=== PATIENT | female | born 1970 | race Caucasian/White ===

== ENCOUNTER → 2021-12-17 00:26 | Outpatient (CLI) | payer OTHER, SELFPAY ==
--- NOTE | 2021-12-17 | DI.MAMMO_ITS ---
Exam(s) MAMMO SCREENING EXAM: MAMMO SCREENING CLINICAL HISTORY: SCREENING FOR BREAST CANCER Z12.39 TECHNIQUE: Bilateral full field digital CC and MLO mammographic images were obtained with 3D tomosyn thesis and utilizing computer aided detection (CAD). COMPARISON: Available for comparison. FINDINGS: Masses/Architectural Distortion: None seen. Microcalcifications: No suspicious pleomorphic-type are seen. Skin Thickening/Nipple Retraction: None. IMPRESSION: 1. No significant interval change with no specific features of malignancy noted. 2. Unless there is more urgent need, screening mammography is recommended, as per [employer] guidelines. BI-RADS Category 1 - Negative Breast Density - Category B - Scattered areas of fibroglandular density Breast density category C or D implies that the patient has dense breast tissue. Dense breast tissue is very common and is not abnormal but dense breast tissue can make it harder to find cancer on a ma mmogram. Also, dense breast tissue may increase their breast cancer risk. This information about the result of the mammogram report was provided to the patient to raise their awareness. Use this report when you speak with the patient about their risks for breast cancer, which includes their family hist ory. At that time, you may recommend for more screening tests (Ultrasound or MRI) as they might be us eful based on their risk. A negative radiographic report should not delay biopsy if a dominant or clinically suspicious mass is present. Up to ten percent of cancers are not identified on mammography. A negative report may reinforce clinical impression. Adenosis and dense breasts may obscure an underlying neoplasm. False positive reports average 6 to 10%. Patient will receive a letter notifying them of these results.
== END ==
PROVIDERS: Visit Provider Nurse Practitioner Family
DX: Z12.31 Encounter for screening mammogram for malignant neoplasm of breast (principal); R92.8 Other abnormal and inconclusive findings on diagnostic imaging of breast
CPT/HCPCS: 77063; 77067

== ENCOUNTER 2021-12-23 09:39 | Outpatient (REF) | payer OTHER, SELFPAY ==
--- NOTE | 2021-12-23 08:30 | PAPFT_PTH ---
PATIENT: Daisha Sears LOC: [facility]#:[id number] AGE/SX: 51/F ROOM: RE12/23/[address]: Gabriela Tabares : 1970 BED: DIS: 12/23/2021 SPEC #: [id number] RECD: 12/23/21 14:54 STATUS: MELLO RELana #: [id number] EMILY: 12/23/21 08:[address]: Gabriela Tabares DEPT: [facility] Cytology RECD BY: Gwen Cazares Tissues: 1 - CX/ENDOCX FOR PAP SMEARS Procedures: PAP THIN PREP/UVM Screening HPV DNA PROBE Comments: [id number]
[2021-12-23 15:15] LABS: HCT 42.1 % (36.0-46.0); HGB 13.5 g/dL (11.2-15.7); MCH 29.2 pg (27.0-33.0); MCHC 32.1 % (32.0-36.0); MCV 91 fL (80-95); MPV 11.1 fL (8.0-11.0); Platelet Count 220 10^3/uL (130-400); RBC 4.62 10^6/uL (3.93-5.22); RDW 13.1 % (11.7-14.6); RDW-SD 43.8 fL; WBC 4.33 10^3/uL (4.4-10.8)
[2021-12-23 15:52] LABS: ALT 16 U/L (14-59); AST 19 U/L (15-37); Albumin 3.8 g/dL (3.4-5.0); Alkaline Phosphatase 120 U/L (46-116); BUN 10 mg/dL (7-18); Bilirubin, Total 0.4 mg/dL (0.2-1.0); CREATININE 0.7 mg/dL (0.55-1.02); Calculated LDL 122 mg/dL (<100); Chloride 105 mmol/L (98-107); Cholesterol 208 mg/dL (<200); Glucose 100 mg/dL (74-106); HDL Cholesterol 64 mg/dL (40-60); Potassium 4.2 mmol/L (3.5-5.1); Sodium 141 mmol/L (136-145); Total Protein 7.5 g/dL (6.4-8.2); Triglyceride 113 mg/dL (<150)
[2021-12-23 16:11] LABS: Vitamin D 25 Total 25.9 ng/mL (30-100)
[2021-12-24 09:41] LABS: Hepatitis C Ab w Rflx HCV PCR Negative (Negative)
[2021-12-24 10:31] LABS: HIV-1/2 Ag & Ab Screen Negative (Negative)
[2021-12-24 15:22] LABS: Chlamydia Result Negative (Negative); GC Result Negative (Negative)
== END 2021-12-23 09:40 | disposition home or self-care (01) ==
LOC: NCHCN 09:39
PROVIDERS: Visit Provider Nurse Practitioner Family
DX: E55.9 Vitamin D deficiency, unspecified; Z11.59 Encounter for screening for other viral diseases; Z11.4 Encounter for screening for human immunodeficiency virus [HIV]
CPT/HCPCS: 80053; 80061; 82306; 85027; 86803; 87389; 87491; 87591; 88142; 87624

== ENCOUNTER 2022-06-16 08:50 | Day surgery (SDC) | payer OTHER, SELFPAY ==
--- NOTE | 2022-06-15 20:33 | W.PM.DSUDISC ---
Date of service: 06/16/22 Time of Service: 11:14 Discharge Plan Disposition Patient Disposition: Home Condition: Good Discharge Details Reason For Visit: Screening colonoscopy Attending Provider: Melchor Burton Primary Care Provider: Gabriela Tabares Home Meds and New Rx's Prescriptions: Continued hydroxyzine pamoate 25 mg capsule 1 cap PO PRN PRN Label Comments: TAKE 1 CAPSULE BY MOUTH ONCE A DAY NEEDED. TAKE 1 TO 2 CAPSULES AT NIGHT NEEDED Discontinued polyethylene glycol 3350 17 gram/dose powder 238 g PO ONCE Qty: 238 0RF Rx Instructions: take per colonoscopy instructions bisacodyl [Dulcolax (bisacodyl)] 5 mg tablet,delayed release (DR/EC) 5 mg PO ONCE Qty: 4 0RF Rx Instructions: take per colonoscopy instructions Discharge Instructions Instructions: Colorectal Polyps (GEN) Additional Instructions: 1. If tolerated, consume a soft, low fiber diet for 1-2 days. 2[address] Do not drive, drink alcohol, operate machinery, make critical decisions, or do activities that require coordination or balance for 24 hours. 3. Because air was put into your colon during the procedure, expelling air from your rectum (passing gas or farting) is normal. 4. You may not have a bowel movement for 1-3 days because of the colonoscopy prep. This is normal. 5. Go directly to the emergency room if you notice any of the following: Develop chills (warm to touch), or if you have a thermometer and your temperature is above 101 Difficulty breathing or difficultly swallowing Persistent vomiting Severe abdominal pain, other than gas cramps Severe chest pain Black, tarry stools Any bleeding ? exceeding one tablespoon 6. Call your physician if the site where your intravenous was started becomes red, swollen, painful, and warm to touch. 7. Your physician has reviewed your pre-procedure medications. Please continue to take those medications as previously ordered. You will be given specific information/education regarding any changes to your medications before leaving. Activity:: Activity as Tolerated Diet:: As Tolerated Discharge Orders Discharge Orders: Discharge Order (Routine); Ordered 06/15/22 Ordered By: Melchor Burton DS: Diagnosis Discharge Diagnosis (1) Screening for colon cancer: Status: Acute Asessment and Plan: Daisha, we were able to complete your colonoscopy today. It went very well. You had 1 polyp, that I removed completely. Will take about a week or so to get the results of the pathology, but I will call you at that time, and let you know if you need to do anything else, or when your next colonoscopy should be.
--- NOTE | 2022-06-15 20:34 | W.COLOREPORT ---
Date of service: 06/16/22 Time of Service: 11:16 Colonoscopy Report Date of procedure: 06/16/22 Pre-op diagnosis general: Screening colonoscopy Post-op diagnosis procedure note: other (Colon polyp, diverticulosis) Procedure: Colonoscopy with polypectomy Surgeon: Melchor Burton Anesthesia Type: General:No Airway Estimated blood loss (mL): 10 Pathology: other (Colon polyp around 25 cm) Complications: None Disposition: same day Indications: Daisha is here for her first screening colonoscopy Prep: Miralax/Dulcolax Procedure Start Time: 10:31 Procedure End Time: 10:53 Retraction Time: 17 Findings: Mild sigmoid diverticulosis, colon polyp around 25 cm Procedure Description: After the induction of monitored anesthetic care, and with the patient in left lateral decubitus position, I began by performing an external anorectal exam.? Perineum and skin were normal, as was the anal verge.? There was no evidence of external hemorrhoids.? Next, I performed a digital rectal exam.? I did not appreciate any abnormal findings.? Next, I advanced a colonoscope into the rectal vault.? I performed retroflexion.? This was normal.? Using insufflation, I then advanced the colonoscope beyond the rectal folds and into the sigmoid colon before advancing towards the cecum.? There were occasional sigmoid diverticuli. The quality of the prep was excellent.? The scope was noted to be in the cecum by identification of the ileocecal valve and appendiceal orifice.? I then began withdrawing the colonoscope using repeated irrigation as necessary for full evaluation of the colonic mucosa. Around 25 cm from the anal verge I identified a 0.5 cm polyp. ?It appeared sessile in character. ?I was able to remove this with a cold snare polypectomy. ?I examined the site, and there was minimal bleeding. ?Once this was completed, I continued to withdraw the scope and examine the remainder of the colonic mucosa.?Once the scope was withdrawn to the level of the rectum, great care was taken to examine portions of the rectal folds.? Finally, the scope was withdrawn and the patient was brought to the same-day surgery recovery unit as the anesthetic wore off. ?The findings and instructions were shared with the patient prior to discharge.
[2022-06-16 09:27] VITALS: BP 117/71; PULSE 78; RESP 16; TEMP 36.5; O2SAT 96
--- NOTE | 2022-06-16 09:47 | W.ANESPRE ---
General Info Date of Service Date Performed: 06/16/22 Height: 5 ft 2 in Weight: 81.9 kg Body Mass Index (BMI): 33.0 Surgical Procedure: Operation Date: 06/16/22 10:35 Proposed Procedure Side Surgeon giselle Burton MD Meds Allergies and Home Medications Allergies Allergy/AdvReac Type Severity Reaction Status Date / Time No Known Allergies Allergy Verified 06/16/22 09:26 Home Medication Medication Instructions Recorded hydroxyzine pamoate 25 mg capsule 1 cap PO PRN PRN 06/16/22 Current Visit Medications: Current Medications Generic Name Dose Route Start Last Admin Trade Name Freq PRN Reason Stop Dose Admin Hyoscyamine Sulfate 0.125 mg 06/15/22 20:35 Hyoscyamine 0.125 Mg Sl/Oral/Chew SL DIRECTED PRN Ringer's Solution 1,000 mls @ 80 mls/hr 06/16/22 06:00 IV 07/15/22 23:59 INFUSION EDENILSON IV Miscellaneous Supplies 1 each 06/16/22 06:00 Iv Access IV 07/15/22 23:59 DIRECTED EDENILSON Ondansetron HCl 4 mg 06/15/22 20:35 Ondansetron 4 Mg/2 Ml Vial IVP Q4H PRN PRN Nausea / Vomiting Sodium Chloride 0 ml 06/16/22 06:00 Normal Saline Flush 10 Ml Syr IV 07/15/22 23:59 PRN PRN Sodium Chloride 0 ml 06/16/22 06:00 Normal Saline 10 Ml Vial IJ 07/15/22 23:59 DIRECTED PRN Sterile Water 0 ml 06/16/22 06:00 Water,Injection,Sterile 10 Ml Vial IJ 07/15/22 23:59 DIRECTED PRN PFSH Active Problems Active Problems: Problem Status Onset Code Screening for colon cancer Z12.11 Left foot pain M79.672 Pilar cyst L72.11 Enlarged uterus N85.2 Breast mass N63.0 Vitamin D deficiency E55.9 Irregular menses N92.6 Fibroid uterus D25.9 Medical History Medical History History of Lyme disease Incomplete Surgical History Surgical History Hx of dilation and curettage Tobacco Smoking/Tobacco Use Status: Never Alcohol Alcohol Intake: current Alcohol intake frequency: a few times a month Substance Use Substance use: Never Substance use type: does not use Vital Signs and Lab Results Vital Signs Most Recent Vital Signs in EMR: Most Recent Vital Signs Temp Pulse Resp BP Pulse Ox 36.5 C 78 16 117/71 96 06/16/22 09:27 06/16/22 09:27 06/16/22 09:27 06/16/22 09:27 06/16/22 09:27 Point of Care Results Point of Care Results: POC- Test(urine) Negative 06/16/22 09:43 Lab Results Blood Type / Crossmatch: No Data to Display Complete Blood Count: No Data to Display Complete Metabolic Panel: No Data to Display Liver Function Panel: No Data to Display Coagulation Panel: No Data to Display Cardiac Panel: No Data to Display Arterial Blood Gas: No Data to Display Venous Blood Gas: No Data to Display Pancreas Panel: No Data to Display Thyroid Panel: No Data to Display Infectious Disease: No Data to Display Blood Cultures: No Data to Display Toxicology Panel: No Data to Display Panel: No Data to Display Anesthesia Assessment and Plan Anesthesia History Personal History: No History of Anesthesia Complications Family History: No Family History of Anesthesia Complications Exercise Tolerance Exercise Tolerance: Metabolic Equivalents>4 Pertinent Negatives Pertinent Negatives: No Symptoms of GERD Cardiac & Pulmonary Exam Cardiac Exam: Normal S1/S2 Heart Sounds Pulmonary Exam: Clear Bilateral Breath Sounds Implantable Cardiac Device Does patient have a Pacemaker or an ICD?: No Airway Exam Known Difficult Airway: No Mallampati Class: 2 Mouth Opening: Normal (> 3cm) Thyromental Distance: Greater than 3 cm Neck Range of Motion: Full ROM Neck Circumference: Normal Teeth Condition: Normal Dentition ASA Classification ASA Score: ASA 2 Emergency Case?: No NPO Status NPO Status: NPO Clears >2 hours, Solids >8 hours Status Status: Negative HCG Anesthesia Plan Resuscitation Status: Full Code Anesthesia Technique: General Anesthesia Airway Planned: Natural Airway Monitors Used: Standard Monitors
[2022-06-16] MEDS: Lactated Ringers 1,000 ML 80 ML IV (09:50)
--- NOTE | 2022-06-16 10:14 | W.ANESPRE ---
General Info Height: 5 ft 2 in Weight: 81.9 kg Body Mass Index (BMI): 33.0 Surgical Procedure: Operation Date: 06/16/22 10:35 Proposed Procedure Side Surgeon giselle Burton MD Meds Allergies and Home Medications Allergies Allergy/AdvReac Type Severity Reaction Status Date / Time No Known Allergies Allergy Verified 06/16/22 09:26 Home Medication Medication Instructions Recorded hydroxyzine pamoate 25 mg capsule 1 cap PO PRN PRN 06/16/22 Current Visit Medications: Current Medications Generic Name Dose Route Start Last Admin Trade Name Freq PRN Reason Stop Dose Admin Hyoscyamine Sulfate 0.125 mg 06/15/22 20:35 Hyoscyamine 0.125 Mg Sl/Oral/Chew SL DIRECTED PRN Ringer's Solution 1,000 mls @ 80 mls/hr 06/16/22 06:00 06/16/22 09:50 IV 07/15/22 23:59 80 mls/hr INFUSION EDENILSON Administration IV Miscellaneous Supplies 1 each 06/16/22 06:00 Iv Access IV 07/15/22 23:59 DIRECTED EDENILSON Ondansetron HCl 4 mg 06/15/22 20:35 Ondansetron 4 Mg/2 Ml Vial IVP Q4H PRN PRN Nausea / Vomiting Sodium Chloride 0 ml 06/16/22 06:00 Normal Saline Flush 10 Ml Syr IV 07/15/22 23:59 PRN PRN Sodium Chloride 0 ml 06/16/22 06:00 Normal Saline 10 Ml Vial IJ 07/15/22 23:59 DIRECTED PRN Sterile Water 0 ml 06/16/22 06:00 Water,Injection,Sterile 10 Ml Vial IJ 07/15/22 23:59 DIRECTED PRN PFSH Active Problems Active Problems: Problem Status Onset Code Screening for colon cancer Z12.11 Left foot pain M79.672 Pilar cyst L72.11 Enlarged uterus N85.2 Breast mass N63.0 Vitamin D deficiency E55.9 Irregular menses N92.6 Fibroid uterus D25.9 Medical History Medical History History of Lyme disease Incomplete Surgical History Surgical History Hx of dilation and curettage Tobacco Smoking/Tobacco Use Status: Never Alcohol Alcohol Intake: current Alcohol intake frequency: a few times a month Substance Use Substance use: Never Substance use type: does not use Vital Signs and Lab Results Vital Signs Most Recent Vital Signs in EMR: Most Recent Vital Signs Temp Pulse Resp BP Pulse Ox 36.5 C 78 16 117/71 96 06/16/22 09:27 06/16/22 09:27 06/16/22 09:27 06/16/22 09:27 06/16/22 09:27 Point of Care Results Point of Care Results: POC- Test(urine) Negative 06/16/22 09:43 Lab Results Blood Type / Crossmatch: No Data to Display Complete Blood Count: No Data to Display Complete Metabolic Panel: No Data to Display Liver Function Panel: No Data to Display Coagulation Panel: No Data to Display Cardiac Panel: No Data to Display Arterial Blood Gas: No Data to Display Venous Blood Gas: No Data to Display Pancreas Panel: No Data to Display Thyroid Panel: No Data to Display Infectious Disease: No Data to Display Blood Cultures: No Data to Display Toxicology Panel: No Data to Display Panel: No Data to Display Anesthesia Assessment and Plan Anesthesia History Personal History: No History of Anesthesia Complications Family History: No Family History of Anesthesia Complications Exercise Tolerance Exercise Tolerance: Metabolic Equivalents>4 Implantable Cardiac Device Does patient have a Pacemaker or an ICD?: No Airway Exam Known Difficult Airway: No Mouth Opening: Normal (> 3cm) Thyromental Distance: Greater than 3 cm Neck Range of Motion: Full ROM Neck Circumference: Normal
[2022-06-16 10:19] VITALS: BMI 33.0
--- NOTE | 2022-06-16 10:34 | BOWEL_PTH ---
PATIENT: Daisha Sears LOC: [facility] U#:[id number] AGE/SX: 52/F ROOM: RE06/16/[address]: Melchor Burton MD : 1970 BED: DIS: 06/16/2022 SPEC #: [id number] RECD: 06/16/22 11:47 STATUS: MELLO REQ #: [id number] EMILY: 06/16/22 10:[address]: Melchor Burton DEPT: Surgical Specimen RECD BY: Cristina Tabares ENTERED: 06/16/22 11:48 SP TYPE: Bowel OTHR DR: Gabriela Tabares Tissues: 1 - BIOPSY BOWEL Procedures: GROSS AND MICRO LEVEL 4 Comments: [id number]
[2022-06-16 11:02] VITALS: BP 114/75; PULSE 72; RESP 16; TEMP 36.2; O2SAT 100
--- NOTE | 2022-06-16 11:09 | W.ANESPOSTOP ---
Postoperative Evaluation Date, Time and Location Date Performed: 06/16/22 Time Performed: 11:09 Patient Location: Day Surgery Unit Vital Signs Most Recent Imported Vital Signs: Most Recent Vital Signs Temp Pulse Resp BP Pulse Ox 36.2 C L 72 16 114/75 100 06/16/22 11:02 06/16/22 11:02 06/16/22 11:02 06/16/22 11:02 06/16/22 11:02 Pain Score Most Recent Pain Score: Most Recent Pain Score Pain Level 0 06/16/22 11:02 Assessment Mental Status: Awake (Alert & Oriented to Patient Baseline) Airway and Respiratory Function: Patent airway with normal (patient baseline) respiratory exam Cardiovascular Function: Hemodynamically Stable Hydration Status: Adequately Hydrated Nausea & Vomiting: No Nausea or Vomiting Pain: Pt. Denies Any Pain Peripheral Nerve Block: Patient did not receive a nerve block
[2022-06-16 11:35] VITALS: BP 126/74; PULSE 59; RESP 18; TEMP 36.3; O2SAT 98
== END 2022-06-16 12:00 | disposition home or self-care (01) ==
PROVIDERS: PCP Nurse Practitioner Family; Visit Provider Surgery
PROC: 0DJD8ZZ Inspection of Lower Intestinal Tract, Via Natural or Artificial Opening Endoscopic (ICD-10-PCS; CPT 45378; principal; 2022-06-16 10:30)
DX: Z12.11 Encounter for screening for malignant neoplasm of colon (principal); K63.5 Polyp of colon; K57.30 Diverticulosis of large intestine without perforation or abscess without bleeding
CPT/HCPCS: 45385; 88305; J2704

== ENCOUNTER 2023-03-17 18:20 | Outpatient (REF) | payer OTHER, SELFPAY ==
[2023-03-17 15:30] LABS: ALT 18 U/L (14-59); AST 12 U/L (15-37); Albumin 3.9 g/dL (3.4-5.0); Alkaline Phosphatase 119 U/L (46-116); Anion Gap 9.4 mmol/L (3-11); BUN 17 mg/dL (7-18); Bilirubin, Total 0.3 mg/dL (0.2-1.0); CO2 26.6 mmol/L (21.0-32.0); CREATININE 0.7 mg/dL (0.55-1.02); Calcium 9.5 mg/dL (8.5-10.1); Calculated LDL 153 mg/dL (<100); Chloride 104 mmol/L (98-107); Cholesterol 239 mg/dL (<200); Estimated GFR 104.65 (mL/min/1.73m2); Glucose 99 mg/dL (74-106); HDL Cholesterol 71 mg/dL (40-60); Potassium 4.1 mmol/L (3.5-5.1); Sodium 140 mmol/L (136-145); Total Protein 7.1 g/dL (6.4-8.2); Triglyceride 77 mg/dL (<150)
[2023-03-17 15:42] LABS: Vitamin D 25 Total 36.4 ng/mL (30-100)
== END 2023-03-17 18:21 | disposition home or self-care (01) ==
LOC: NCHCN 18:20
PROVIDERS: PCP Nurse Practitioner Family; Visit Provider Nurse Practitioner Family
DX: E55.9 Vitamin D deficiency, unspecified (principal); Z13.220 Encounter for screening for lipoid disorders; Z00.00 Encounter for general adult medical examination without abnormal findings
CPT/HCPCS: 80053; 80061; 82306

== ENCOUNTER 2024-01-10 23:59 | Outpatient (REF) | payer BC, SELFPAY ==
[2024-01-10 21:23] LABS: HCT 43.5 % (36.0-46.0); HGB 14.1 g/dL (11.2-15.7); MCH 29.8 pg (27.0-33.0); MCHC 32.4 % (32.0-36.0); MCV 92 fL (80-95); MPV 10.3 fL (8.0-11.0); Platelet Count 235 10^3/uL (130-400); RBC 4.73 10^6/uL (3.93-5.22); RDW 12.5 % (11.7-14.6); RDW-SD 42.4 fL
[2024-01-10 21:27] LABS: CREATININE 0.8 mg/dL (0.55-1.02); Estimated GFR 89.15 (mL/min/1.73m2)
--- OUTSIDE RECORDS SUMMARY | 2024-01-11 00:05 | XMS_ITS | Encounter Summary ---
Author Organization [facility] Address [address] [place] [address] Care Team Providers Care Electronics Hardware Design Engineer Name Role Phone RayshawnGabriela TOSHA Primary Care Provider [phone] Encounter Details Date Type Department Care Team (Late st Contact Info) Description 12/23/2021 Lab Requisition [facility] Pathology & Laboratory Medicine - [facility] [address], [place] [id number] Outr Resulting Lab, Provider Social History Tobacco Use Types Packs/Day Years Used Date Smoking Tobacco: Never Assessed Sex and Gender Information Value Date Recorded Sex Assigned at Not on file Gender Identity Not on file Sexual Orientation Not on file documented as of this encounter Plan of Treatment Not on file documented as of this encounter Procedures Procedure Name Priority Date/Time Associated Diagnosis Comments HIV 1/2 ANTIGEN AND ANTIBODY, 4TH GENERATION Routine 12/23/2021 9:00 EDT documented in this encounter Results * HIV 1/2 ANTIGEN AND ANTIBODY, 4TH GENERATION (12/23/2021 9:00 EDT) HIV 1 and 2 Antibody/p24 Antigen, 4th Generation Negative Negative 12/24/2021 10:26 EDT [facility] Comment:If acute HIV-1 infec tion is suspected in a high risk patient, submit plasma specimen for HIV-1 RNA quantitation test. Blood VENOUS BLOOD / Unknown 12/23/2021 9:00 EDT 12/23/2021 21:11 EDT Narrative [facility] - 12/24/2021 10:26 EDT Fourth Generation assay performed on the Siemens Centaur XPT. Provider Outr Resulting Lab IMMUNOLOGY A ND SEROLOGY ORDERABLES [facility] [address] [place] [address] documented in this encounter Visit Diagnoses Not on filedocumented in this encounter Care Teams Electronics Hardware Design Engineer Relationship Specialty Start Date End Date Gabriela Tabares FNP [address] [place] [phone] PCP - General 05/22/22 documented as of this encounter
--- OUTSIDE RECORDS SUMMARY | 2024-01-11 00:05 | XMS_ITS | Clinical Summary ---
Author Organization [facility] Address [address] [place] [address] Care Team Providers Care Tunnel Kiln Operator Name Role Phone RayshawnGabriela TOSHA Primary Care Provider [phone] Social History Tobacco Use Types Packs/Day Years Used Date Smoking Tobacco: Never Assessed Sex and Gender Information Value Date Recorded Sex Assigned at Not on file Gender Identity Not on file Sexual Orientation Not on file Plan of Treatment Health Maintenance Due Date Last Done Comments Hepatitis B Vaccine (1 of 3 - 19+ 3-dose series) 02/21 COVID-19 Vaccine ( season) 2023 Hepatitis C Screen Completed 12/23/2021 Procedures Procedure Name Priority Date/Time Associated Diagnosis Comments HEPATITIS C AB W REFLEX TO HCV RNA BY PCR Routine 12/23/2021 9:00 EDT from Last 3 Months or Most Recently Relevant to Health Maintenance Results * HEPATITIS C AB W REFLEX TO HCV RNA BY PCR (12/23/2021 9:00 EDT) Hep C Antibody Negative Negative 12/24/2021 9:38 EDT [facility] Blood VENOUS BLOOD / Unknown 12/23/2021 9:00 EDT 12/23/2021 21:11 EDT Provider Outr Resulting Lab CHEMISTRY & BLOOD GAS ORDERABLES [facility] [address] [place] [address] from Last 3 Months or Most Recently Relevant to Health Maintenance Daisha Sears Personal/Family Self 1970 [id number] [facility] [place] [address] Daisha Sears Personal/Family Self 1970 [address] [facility] [place] [address] Daisha Sears Personal/Family Self 1970 [address] [facility] [place] [address] Daisha Sears Personal/Family Self 1970 [address] [facility] [place] [address] Diasha Sears Personal/Family Self 1970 [address] [facility] [place] [address] Daisha Sears Personal/Family Self 1970 [address] [facility] [place] [address] Daisha Sears Personal/Family Self 1970 [address] [facility] [place] [address] Care Teams Tunnel Kiln Operator Relationship Specialty Start Date End Date Gabriela Tabares FNP [address] [phone] [facility] - General 05/22/22
--- OUTSIDE RECORDS SUMMARY | 2024-01-11 00:05 | XMS_ITS | Continuity of Care Document ---
Author Organization [facility] Ambulatory Clinics Address [address] [place] [address] Care Team Providers Care Wireline Field Operator Name Role Phone ANTHONY KAYLIN Primary Care Physician [phone] Encounter [facility] NBR [id number] Date(s): 12/18/23 - 12/18/23 [facility] Ambulatory Clinics [address] [place], [place] [address] Encounter Diagnosis Abscess of right thigh(Discharge Diagnosis) - 12/18/23 Discharge Disposition: Home or Self Care Attending Physician: MYLA Prajapati Allergies, Adverse Reactions, Alerts No Known Medication Allergies Assessment and Plan Extracted from: Title:Office Visit Note Author:MYLA Prajapati Date:12/18/23 1.??Abscess of right thigh?? L02.415 ??Verbal informed consent was obtained. ??The area is prepped in a sterile fashion. ??2 cc of 2% lidocaine was placed. ??Good anesthetic was obtained. ??A 1 cm incision was made. ??I was unable to express any??purulent type material however there was a cavity loculations were disrupted.?? Sterile dressing was applied.?? At this time I do not feel she needs to start antibiotics however I will give her a prescription if this is not improving in 24 to 36 hours then she should start antibiotics.?? Recheck if worse or if she is concerned. Ordered: cephalexin 500 mg oral capsule, 500 mg = 1 cap, Oral, QID, # 28 cap, 0 Refill(s) ?? Medications busPIRone 0 Refill(s) Start Date: 12/18/23 Status: Ordered cephalexin 500 mg oral capsule 500 mg = 1 cap, Oral, QID, # 28 cap, 0 Refill(s) Start Date: 12/18/23 Stop Date: 12/25/23 Status: Ordered hydrOXYzine hydrochloride 25 mg oral tablet 25 mg = 1 tab, Oral, Daily, # 30 tab, 0 Refill(s) Start Date: 03/21/22 Status: Ordered Procedures Procedure Date Related Diagnosis Body Site Status D (dilation) and C (curettage) of uterus Completed Pilar cyst of scalp Compl eted Surgical removal of wisdom tooth Completed Vital Signs Most recent to oldest [Reference Range]: 1 Peripheral Pulse Rate [60-100 bpm] 83 bp m (12/18/23 12:30 PM) Respiratory Rate [12-24 br/min] 16 br/mi n (12/18/23 12:30 PM) Blood Pressure [90-140/60-90 mmHg] 144/7 1mmHg *HI* (12/18/23 12:30 PM) Mean Arterial Pressure, Cuff [65-140 mmH g] 95 mmHg (12/18/23 12:30 PM) Social History Social History Type Response Tobacco Never tobacco user T obacco Use:. Sex Hospital Discharge Instructions Patient Education 12/18/2023 11:55:28 Skin Abscess, Iqge-ri-Vfta Skin Abscess A skin abscess is an infected spot of skin. It can have pus in it. An abscess can happen in any part of your body. Some abscesses break open (rupture) on their own. Most keep getting worse unless they are treated. If your abscess is not treated, the infection can spread deeper into your body and blood. This can make you feel sick. What are the causes? Germs that enter your skin. This may happen if you have: ??? A cut or scrape. ??? A wound from a needle or an insect bite. ??? Blocked oil or sweat glands. ??? A problem with the spot where your hair goes into your skin. ??? A fluid-filled sac called a cyst under your skin. What increases the risk? Having problems with how your blood moves through your body. ??? Having a weak body defense system (immune system). ??? Having diabetes. ??? Having dry and irritated skin. ??? Needing to get shots often. ??? Putting drugs into your body with a needle. ??? Having a splinter or something else in your skin. ??? Smoking. What are the signs or symptoms? A firm bump under your skin that hurts. ??? A bump with pus at the top. ??? Redness and swelling. ??? Warm or tender spots. ??? A sore on the skin. How is this treated? You may need to: ??? Put a heat pack or a warm, wet washcloth on the spot. ??? Have the pus drained. ??? Take antibiotics. Follow these instructions at home: Medicines ??? Take nnxo-bla-yowztlj and prescription medicines only as told by your doctor. ??? If you were prescribed antibiotics, take them as told by your doctor. Do not stop taking them even if you start to feel better. Abscess care ??? If you have an abscess that has not drained, put heat on it. Use the heat source that your doctor recommends, such as a moist heat pack or a heating pad. ??? Place a towel between your skin and the heat source. ??? Leave the heat on for 20???30 minutes. ??? If your skin turns bright red, take off the heat right away to prevent holland. The risk of burnsis higher if you cannot feel pain, heat, or cold. ??? Follow instructions from your doctor about how to take care of your abscess. Make sure you: ??? Cover the abscess with a bandage. ??? Wash your hands with soap and water for at least 20 seconds before and after you change your bandage. If you cannot use soap and water, use hand consumer affairs specialist. ??? Change your bandage as told by your doctor. ??? Check your abscess every day for signs that the infection is getting worse. Check for: ??? More redness, swelling, or pain. ??? More fluid or blood. ??? Warmth. ??? More pus or a worse smell. General instructions ??? To keep the infection from spreading: ??? Do not share personal items or towels. ??? Do not go in a hot tub with others. ??? Avoid making skin contact with others. ??? Be careful when you get rid of used bandages or any pus from the abscess. ??? Do not smoke or use any products that contain nicotine or tobacco. If you need help quitting, ask your doctor. Contact a doctor if: ??? You see red streaks on your skin near the abscess. ??? You have any signs of worse infection. ??? You vomit every time you eat or drink. ??? You have a fever, chills, or muscle aches. ??? The cyst or abscess comes back. Get help right away if: ??? You have very bad pain. ??? You make less pee (urine) than normal. This information is not intended to replace advice given to you by your health care provider. Make sure you discuss any questions you have with your health care provider. Document Revised: 12/21/2022 Document Reviewed: 12/21/2022 [employer] Patient Education ?? 2022 [employer]. Physician Outpatient Note * MYLA Prajapati: PERFORM Event Display: Office Clinic Note Physician Authored Date: [id number] ARIELLA CASILLAS :1970 Age:53 years Sex:Female Visit Date:12/18/2023 Primary Care Physician: KAYLIN CRUZ Chief Complaint PT states woke up monday morning with possible bug bite on right back thigh. Bright red and hot. ??Has had cellulitis before. Hasn't tried anything to help. History of Present Illness Patient presents 24-hour history of red swollen area posterior right thigh. ??There is some slight fluctuance per patient. ??She has not??done any squeezing or has noticed any drainage on this.?? No associated fever, chills, sweats. ??No history of similar. ??No known trauma or injury. ??No known insect bite. Physical Exam Vitals & Measurements HR:??83??(Peripheral)?? RR:??16?? BP:??144/71?? SpO2:??98%?? Well-appearing no acute distress examination right posterior thigh shows a 1 cm fluctuant red area without surrounding induration??or surrounding cellulitis.?? There is no active drainage. Assessment/Plan 1.??Abscess of right thigh??L02.415 ??Verbal informed consent was obtained. ??The area is prepped in a sterile fashion. ??2 cc of 2% lidocaine was placed. ??Good anesthetic was obtained. ??A 1 cm incision was made. ??I was unable to express any??purulent type material however there was a cavity loculations were disrupted.?? Sterile dressing was applied.?? At this time I do not feel she needs to start antibiotics however I will giveher a prescription if this is not improving in 24 to 36 hours then she should start antibiotics.?? Recheck if worse or if she is concerned. Ordered: cephalexin 500 mg oral capsule, 500 mg = 1 cap, Oral, QID, # 28 cap, 0 Refill(s) ?? Patient Instructions Leave dressing in place??until tomorrow morning.?? Then wash area with soap and water redress. ??Ifimproving then no need to start antibiotics. ??If worse or not improving then start antibiotics.?? Recheck??as needed. Patient Education Skin Abscess, Mavd-lg-Whyu Problem List/Past Medical History Ongoing No qualifying data Historical No qualifying data Procedure/Surgical History ???D (dilation) and C (curettage) of uterus???Pilar cyst of scalp???Surgical removal of wisdom tooth Medications busPIRone cephalexin 500 mg oral capsule, 500 mg= 1 cap, Oral, QID hydrOXYzine hydrochloride 25 mg oral tablet, 25 mg= 1 tab, Oral, Daily Allergies No Known Medication Allergies Social History Electronic Cigarette/Vaping Electronic Cigarette Use: Never. Tobacco Never tobacco user Tobacco Use:. Family History Diabetes mellitus: Mother. Electronically Signed on 12/18/2023 12:58 EDT MYLA Prajapati Outpatient Summary note * MYLA Prajapati: PERFORM Event Display: Ambulatory Patient Summary Authored Date: [id number] ARIELLA CASILLAS :1970 Age:53 years Sex:Female Visit Date:12/18/2023 Primary Care Physician: KAYLIN CRUZ Ambulatory Visit Instructions We would like to thank you for allowing us to assist you with your healthcare needs. The following includes patient education materials and information regarding your injury/illness. Your Next Steps Instructions From Your Care Team Leave dressing in place??until tomorrow morning.?? Then wash area with soap and water redress. ??Ifimproving then no need to start antibiotics. ??If worse or not improving then start antibiotics.?? Recheck??as needed. Medications What How Much When Why Instructions New cephalexin (cephalexin 500 mg oral capsule) 1 Capsules Oral (given by mouth) 4 times a day Abscess of right thigh Duration: 7 Days Printed Prescription Unchanged busPIRone Unchanged hydrOXYzine (hydrOXYzine hydrochloride 25 mg oral tablet) 1 tab Oral (given by mouth) Every day Your Summary Your Diagnosis Abscess of right thigh Your Care Team Attending Physician - MYLA Prajapati Primary Care Physician - KAYLIN CRUZ Discharge Vitals Heart Rate??(Peripheral) 83 Respiratory Rate?? 16 Blood Pressure?? 144/71?? SpO2?? 98% Allergies No Known Medication Allergies Education Materials Skin Abscess A skin abscess is an infected spot of skin. It can have pus in it. An abscess can happen in any part of your body. Some abscesses break open (rupture) on their own. Most keep getting worse unless they are treated. If your abscess is not treated, the infection can spread deeper into your body and blood. This can make you feel sick. What are the causes? Germs that enter your skin. This may happen if you have: ? A cut or scrape. ? A wound from a needle or an insect bite. ? Blocked oil or sweat glands. ? A problem with the spot where your hair goes into your skin. ? A fluid-filled sac called a cyst under your skin. What increases the risk? Having problems with how your blood moves through your body. ? Having a weak body defense system (immune system). ? Having diabetes. ? Having dry and irritated skin. ? Needing to get shots often. ? Putting drugs into your body with a needle. ? Having a splinter or something else in your skin. ? Smoking. What are the signs or symptoms? A firm bump under your skin that hurts. ? A bump with pus at the top. ? Redness and swelling. ? Warm or tender spots. ? A sore on the skin. How is this treated? You may need to: ? Put a heat pack or a warm, wet washcloth on the spot. ? Have the pus drained. ? Take antibiotics. Follow these instructions at home: Medicines ? Take jxia-rwy-osyrtax and prescription medicines only as told by your doctor. ? If you were prescribed antibiotics, take them as told by your doctor. Do not stop taking them even if you start to feel better. Abscess care ? If you have an abscess that has not drained, put heat on it. Use the heat source that your doctor recommends, such as a moist heat pack or a heating pad. ? Place a towel between your skin and the heat source. ? Leave the heat on for 20???30 minutes. ? If your skin turns bright red, take off the heat right away to prevent holland. The risk of holland is higher if you cannot feel pain, heat, or cold. ? Follow instructions from your doctor about how to take care of your abscess. Make sure you: ? Cover the abscess with a bandage. ? Wash your hands with soap and water for at least 20 seconds before and after you change your bandage. If you cannot use soap and water, use hand consumer affairs specialist. ? Change your bandage as told by your doctor. ? Check your abscess every day for signs that the infection is getting worse. Check for: ? More redness, swelling, or pain. ? More fluid or blood. ? Warmth. ? More pus or a worse smell. General instructions ? To keep the infection from spreading: ? Do not share personal items or towels. ? Do not go in a hot tub with others. ? Avoid making skin contact with others. ? Be careful when you get rid of used bandages or any pus from the abscess. ? Do not smoke or use any products that contain nicotine or tobacco. If you need help quitting, ask your doctor. Contact a doctor if: ? You see red streaks on your skin near the abscess. ? You have any signs of worse infection. ? You vomit every time you eat or drink. ? You have a fever, chills, or muscle aches. ? The cyst or abscess comes back. Get help right away if: ? You have very bad pain. ? You make less pee (urine) than normal. This information is not intended to replace advice given to you by your health care provider. Make sure you discuss any questions you have with your health care provider. Document Revised: 12/21/2022 Document Reviewed: 12/21/2022 [employer] Patient Education ?? 2022 [employer] Electronically Signed on: 12/18/2023 12:57 EDTSigned by:KENNEDY Patient Care team information Care Team Personnel Name: KAYLIN CRUZ Position: No Access Member Role: Primary Care Physician Address: Address: [address] [address]- Care Team Related Persons Name: SHIRLEY CHEATHAM
--- OUTSIDE RECORDS SUMMARY | 2024-01-11 00:05 | XMS_ITS | Encounter Summary ---
Author Organization [facility] Address [address] [place] [address] Care Team Providers Care Blasting Entryman Name Role Phone Gabriela Tabares TOSHA Primary Care Provider [phone] Encounter Details Date Type Department Care Team (Late st Contact Info) Description 06/16/2022 Lab Requisition [facility] Pathology & Laboratory Medicine - [facility] [address] [place] [address] Melchor Burton MD [address] [place] [address], [address] [place], [place] [id number] Encounter for screening for malignant neoplasm of colon Social History Tobacco Use Types Packs/Day Years Used Date Smoking Tobacco: Never Assessed Sex and Gender Information Value Date Recorded Sex Assigned at Not on file Gender Identity Not on file Sexual Orientation Not on file documented as of this encounter Plan of Treatment Not on file documented as of this encounter Procedures Procedure Name Priority Date/Time Associated Diagnosis Comments SURGICAL PATHOLOGY Today 06/16/2022 10 :34 EST Encounter for screening for malignant neoplasm of colon documented in this encounter Results * SURGICAL PATHOLOGY (06/16/2022 10:34 EST) Note to Patient The following pathology results have been interpreted by your pathologist and may be available to you before your health provider has had the opportunity to review them. Please allow time for your provider to receive these results and explore management options, if applicable. 06/20/2022 10:26 EST [facility] Final Diagnosis A. COLON, 25 CMS, POLYP, BIOPSY: - Fragments of tubular adenoma. 06/20/2022 10:26 [facility] Attestation By the signature below, the attending physician certifies that they have 1) personally conducted a gross and/or microscopic examination of the described specimen(s), and/or personally interpreted the results of laboratory testing of the described specimen(s), and 2) personally rendered or confirmed the above diagnosis. 06/20/2022 10:26 [facility] at 1026 Clinical History Colon cancer screening 06/20/2022 10:26 [facility] Gross Description A. Received in formalin labelled with proper patient identification (initials L, V) and polyp at 25 cm is an aggregate of yellow-barbosa fragments of polypoid tissue that measures 0.7 x 0.5 x 0.4 cm. The specimen is submitted entirely in A1. Demi Barkerehr 06/17/2022 5:22 06/20/2022 10:26 [facility] Performing Lab [facility] 06/20/2022 10:26 [facility] Scanned Images 06/20/2022 10:26 [facility] Tissue ENTIRE COLON / Unknown 06/16/2022 10:34 EST 06/16/2022 21:09 EST Melchor Burton MD PATHOLOGY ORDERABLES [facility] [address] [place] [address] documented in this encounter Visit Diagnoses Diagnosis Encounter for screening for malignant neoplasm of colon Special screening for malignant neoplasms, colon documented in this encounter Care Teams Blasting Entryman Relationship Specialty Start Date End Date Gabriela Tabares FNP [address] [facility] [address] [place] [id number] PCP - General 05/22/22 documented as of this encounter
--- OUTSIDE RECORDS SUMMARY | 2024-01-11 00:05 | XMS_ITS | Encounter Summary ---
Author Organization [facility] Address [address] [place] [address] Care Team Providers Care Dust Brush Assembler Name Role Phone Gabriela Tabares TOSHA Primary Care Provider [phone] Encounter Details Date Type Department Care Team (Late st Contact Info) Description 12/23/2021 Lab Requisition [facility] Pathology & Laboratory Medicine - [address] [address] Outr Resulting Lab, Provider Social History Tobacco [...] RNA BY PCR Routine 12/23/2021 9:00 EDT documented in this encounter Results * HEPATITIS C AB W REFLEX TO HCV RNA BY PCR (12/23/2021 9:00 EDT) Hep C Antibody Negative Negative 12/24/2021 9:38 EDT [facility] Blood VENOUS BLOOD / Unknown 12/23/2021 9:00 EDT 12/23/2021 21:11 EDT Provider Outr Resulting Lab CHEMISTRY & BLOOD GAS ORDERABLES [facility] [address] [place] [address] documented in this encounter Visit Diagnoses Not on filedocumented in this encounter Care Teams Dust Brush Assembler Relationship Specialty Start Date End Date Gabriela Tabares FNP [address] [facility] [address] [place] [address] PCP - General 05/22/22 documented as of this encounter
--- OUTSIDE RECORDS SUMMARY | 2024-01-11 00:05 | XMS_ITS | Continuity of Care Document ---
Author Organization [facility] Ambulatory Clinics Address [address] [place] [address] Care Team Providers Care Procurement Forester Name Role Phone KAYLIN CRUZ Primary Care Physician [phone] Encounter [facility] NBR [id number] Date(s): 03/22/22 - 03/22/22 [facility] Ambulatory Clinics [address] [place] [address] [place] Encounter Diagnosis Pilar cyst(Discharge Diagnosis) - 03/21/22 Discharge Disposition: Home or Self Care Attending Physician: Patrick Rowan DO Allergies, Adverse Reactions, Alerts No Known Medication Allergies Medications hydrOXYzine hydrochloride 25 mg oral tablet 25 mg = 1 tab, Oral, Daily, # 30 tab, 0 Refill(s) Start Date: 03/21/22 Status: Ordered Procedures Procedure Date Related Diagnosis Body Site Status D (dilation) and C (curettage) of uterus Completed Pilar cyst of scalp Compl eted Surgical removal of wisdom tooth Completed Patient Care team information Personnel Name: KAYLIN CRUZ Address: Address: [address] [address]
--- OUTSIDE RECORDS SUMMARY | 2024-01-11 00:05 | XMS_ITS | Encounter Summary ---
Author Organization [facility] Address [address] [place] [address] Care Team Providers Care Banking Center Manager Name Role Phone Gabriela Tabares Primary Care Provider Encounter Details Date Type Department Care Team (Latest Contact Info) Description 12/23/2021 Lab Requisition [facility] Pathology & Laboratory Medicine - [facility] [address] [place] [address] Gabriela Tabares FNP [address] [place] [address] [address] [place] [phone] Encounter for general adult medical examination without abnormal findings; Encounter for gynecological examination (general) (routine) without abnormal findings; Encounter for screening for malignant neoplasm of cervix Social History Tobacco Use Types Packs/Day Years Used Date Smoking Tobacco: Never Assessed Sex and Gender Information Value Date Recorded Sex Assigned at Not on file Gender Identity Not on file Sexual Orientation Not on file documented as of this encounter Plan of Treatment Not on file documented as of this encounter Procedures Procedure Name Priority Date/Time Associated Diagnosis Comments PAP TEST Today 12/23/2021 8:30 EDT Encounter for general adult medical examination without abnormal findings Encounter for gynecological examination (general) (routine) without abnormal findings Encounter for screening for malignant neoplasm of cervix CHLAMYDIA/N. GONORRHOEAE AMPLIFIED NUCLEIC ACID, THINPREP Today 12/23/2021 8:30 EDT HPV DNA DETECTION WITH GENOTYPING, PCR Today 12/23/2021 8:30 EDT Encounter for general adult medical examination without abnormal findings Encounter for gynecological examination (general) (routine) without abnormal findings Encounter for screening for malignant neoplasm of cervix documented in this encounter Results * HUMAN PAPILLOMAVIRUS (HPV) DETECTION-HIGH RISK TYPES (12/23/2021 8:30 EDT) HPV other High Risk types, PCR Negative Negative 01/07/2022 18:07 EDT [facility] Comment:No E6 or E7 mRNA is detected from HPV types 16,18,31,33,35,39,45,51,52,56,58,59,66, and 68 by body rolling machine tender mediated amplification. Papanicolaou smear specimen (specimen) CERVIX UTERI STRUCTURE / Unknown 12/23/2021 8:30 EDT 01/06/2022 9:04 EDT Gabriela Tabares MELT [employer]SE DRAG OPERATOR MICROBIOLOGY - GENER AL ORDERABLES [facility] [address] [place] [id number] * PAP TEST (12/23/2021 8:30 EDT) Specimens A. Cervix and/or Endocervix , ThinPrep Imaging System with Manual Evaluation 01/07/2022 18:07 EDT [facility] Specimen Adequacy Satisfactory for Evaluation - transformation zone component present Scant due to excessive blood 01/07/2022 18:07 T [facility] General Categorization Other see recommendation - Negative for intraepithelial lesion or malignancy 01/07/2022 18:07 T [facility] Descriptive Diagnosis Endometrial cells present in a woman equal to or greater than age 45. 01/07/2022 18:07 T [facility] Educational Comments Endometrial cells present. Endometrial cells in women 45 years or older may be associated with benign endometrium, hormonal alterations, and, less commonly, endometrial or uterine abnormalities. Endometrial evaluation is recommended in postmenopausal women. 01/07/2022 18:07 T [facility] Attestation By the signature below, the attending physician certifies that they have personally conducted a gross and/or microscopic examination of the described specimens and rendered or confirmed the above diagnosis. 01/07/2022 18:07 EDT [facility] at 1807 Clinical History See below 01/08/20 18:07 EDT [facility] HPV The result for the Human Papillomavirus (HPV) Detection-High Risk Types is Negative. No E6 or E7 mRNA is detected from HPV types 16,18,31,33,35,39 ,45,51,52,56,58,5 9,66, and 68 by body rolling machine tender mediated amplification.Josleine ting was performed on specimen [id number] and was resulted on 01/07/2022 1758 EDT by ADRIAN, LAB INSTRUMENT RESULTS IN 01/07/2022 18:07 EDT [facility] Performing Lab [facility] 01/07/2022 18:07 EDT [facility] Scanned Images 01/07/2022 18:07 EDT [facility] Papanicolaou smear specimen (specimen) CERVIX UTERI STRUCTURE / Unknown 12/23/2021 8:30 EDT 12/24/2021 14:16 EDT Gabriela GIVENS PATHOLOGY ORDERABLES Performing Organization Address City/[facility]/ZIP Co de Phone Number [facility] [address] [place] [address] * CHLAMYDIA/N. GONORRHOEAE AMPLIFIED RNA, THINPREP (12/23/2021 8:30 EDT) Neisseria gonorrhoeae Result Negative Negative 12/24/2021 15:17 EDT [facility] Chlamydia trachomatis Result Negative Negative 12/24/2021 15:17 EDT [facility] Papanicolaou smear specimen (specimen) CERVIX UTERI STRUCTURE / Unknown 12/23/2021 8:30 EDT 12/24/2021 10:35 EDT Gabriela GIVENS MICROBIOLOGY - GENER AL ORDERABLES [facility] [address] [place] [address] documented in this encounter Visit Diagnoses Diagnosis Encounter for general adult medical examination without abnormal findings Unspecified general medical examination Encounter for gynecological examination (general) (routine) without abnormal findings Encounter for screening for malignant neoplasm of cervix Screening for malignant neoplasm of the cervix documented in this encounter Care Teams Banking Center Manager Relationship Specialty Start Date End Date Gabriela Tabares FNP [address] [phone] PCP - General 05/22/22 documented as of this encounter
--- OUTSIDE RECORDS SUMMARY | 2024-01-11 00:05 | XMS_ITS | Referral Summary ---
Author Organization [facility] Address [address] [place] [address] Care Team Providers Care Arts Administrator Name Role Phone Gabriela Tabares TOSHA Primary Care Provider [phone] Social History Tobacco Use Types Packs/Day Years Used Date Smoking Tobacco: Never Assessed Sex and Gender Information Value Date Recorded Sex Assigned at Not on file Gender Identity Not on file Sexual Orientation Not on file Plan of Treatment Not on file Procedures Procedure Name Priority Date/Time Associated Diagnosis Comments HEPATITIS C AB W REFLEX TO HCV RNA BY PCR Routine 12/23/2021 9:00 EDT from Last 3 Months or Most Recently Relevant to Health Maintenance Results * HEPATITIS C AB W REFLEX TO HCV RNA BY PCR (12/23/2021 9:00 EDT) Hep C Antibody Negative Negative 12/24/2021 9:38 EDT [facility] Blood VENOUS BLOOD / Unknown 12/23/2021 9:00 EDT 12/23/2021 21:11 EDT Provider Outr Resulting Lab CHEMISTRY & BLOOD GAS ORDERABLES [facility] [address] [place] [address] from Last 3 Months or Most Recently Relevant to Health Maintenance Care Teams Arts Administrator Relationship Specialty Start Date End Date Gabriela Tabares FNP [address] [facility] [address] [place] [address] PCP - General 05/22/22
--- OUTSIDE RECORDS SUMMARY | 2024-01-11 00:05 | XMS_ITS | Continuity of Care Document ---
Author Organization [facility] Address [address] [place] [phone] Care Team Providers Care Chemical Pathologist Name Role Phone KAYLIN CRUZ Primary Care Physician Encounter [facility] FIN NBR [id number] Date(s): 05/09/23 - 05/09/[address] [phone]- [place] Encounter Diagnosis Cyst of kidney, acquired(Final) - Discharge Disposition: Home or Self Care Attending Physician: KAYLIN CRUZ Admitting Physician: KALYIN CRUZ Referring Physician: KAYLIN CRUZ Allergies, Adverse Reactions, Alerts No Known Medication Allergies Medications hydrOXYzine hydrochloride 25 mg oral tablet 25 mg = 1 tab, Oral, Daily, # 30 tab, 0 Refill(s) Start Date: 03/21/22 Status: Ordered Procedures Procedure Date Related Diagnosis Body Site Status D (dilation) and C (curettage) of uterus Completed Pilar cyst of scalp Compl eted Surgical removal of wisdom tooth Completed Results Radiology Reports * Exam Date Time Procedure Performing Provider Status 05/09/23 8:36 AM US Kidney Bladder JackyletPj; Au th (Verified) Notes: (US Kidney Bladder) Reason For Exam: RENAL CYST US Kidney Bladder EXAM DESCRIPTION: US Kidney Bladder 05/09/2023 INDICATION: RENAL CYST TECHNIQUE: Technique: Grayscale and color doppler ultrasound examination of the kidney and bladder region. COMPARISON: None FINDINGS: The left kidney measures 4.4 cm x 12.3 cm x 5.2 cm. The right kidney measures 4.7 cm x 11.2 cm x 4.7 cm. Ovoid anechoic lesion with through transmission consistent with cyst involving the lower pole of the left kidney measuring 6.7 x 5.8 x 5.2 cm. Otherwise no focal renal mass, hydronephrosis or perinephric fluid collection on either side. Mild fluid in the right renal pelvis with appearance most consistent with extrarenal pelvis Survey of the bladder reveals no intraluminal filling defect. Bilateral ureteral jets were seen. Prevoid bladder volume was 285 mL. Postvoid bladder volume was 15.7 mL. IMPRESSION: Normal renal sizes as described above Left lower pole renal cyst measuring 6.7 x 5.2 x 5.8 cm. Otherwise no focal renal mass, hydronephrosis or perinephric fluid collection on either side Mild postvoid bladder residual measuring 15.7 mL. JOB #: [id number] Final Signed by: Bartolo Castellanos MD Signed (Electronic Signature): 05/09/2023 8:43 am Patient Care team information Care Team Personnel Name: KAYLIN CRUZ Position: No Access Member Role: Primary Care Physician Address: Address: [address] [address]- Care Team Related Persons Name: SHIRLEY CHEATHAM
--- OUTSIDE RECORDS SUMMARY | 2024-01-11 00:05 | XMS_ITS | Continuity of Care Document ---
Author Organization [facility] Address [address] [place] [address] Care Team Providers Care Artillery Officer Name Role Phone KAYLIN CRUZ Primary Care Physician Encounter [facility] FIN NBR [id number] Date(s): 04/25/23 - 04/25/[address] [phone] Encounter Diagnosis Encounter for screening mammogram for malignant neoplasm of breast(Final) - Discharge Disposition: Home or Self Care Attending Physician: KAYLIN CRUZ Admitting Physician: KAYLIN CRUZ Referring Physician: KAYLIN CRUZ Allergies, Adverse [...] Exam Date Time Procedure Performing Provider Status 04/25/23 9:14 AM MG Mammo Screening Bilateral Ernestine Pacheco; Auth (Verified) Notes: (MG Mammo Screening Bilateral) Reason For Exam: SCREENING MG Mammo Screening Bilateral EXAM DESCRIPTION: MG Mammo Screening Bilateral 04/25/2023 INDICATION: SCREENING COMPARISON: Outside facility screening mammogram from 12/17/2021 BREAST DENSITY: The breasts are almost entirely fatty. FINDINGS: MLO and CC views were performed with digital breast tomosynthesis. Images were reviewed using computer aided detection. No asymmetry, architectural distortion or suspicious grouping of calcifications to suggest malignancy in either breast. ASSESSMENT: No mammographic evidence of malignancy. Negative. BI-RADS category 1. RECOMMENDATION: Screening mammography in 1 year JOB #: [id number] Final Signed by: Bartolo Castellanos MD Signed (Electronic Signature): 04/25/2023 9:19 am Patient Care team information Care Team Personnel Name: ANTHONY KAYLIN Position: No Access Member Role: Primary Care Physician Address: Address: [address] [address] Care Team Related Persons Name: SHIRLEY CHEATHAM
== END 2024-01-11 | disposition home or self-care (01) ==
LOC: NCHCN 23:59
PROVIDERS: PCP Nurse Practitioner Family; Visit Provider Nurse Practitioner Family
DX: K11.20 Sialoadenitis, unspecified (principal)
CPT/HCPCS: 85027; 82565

== ENCOUNTER 2024-03-20 10:13 | Outpatient (REF) | payer BC, SELFPAY ==
[2024-03-20 17:44] LABS: ALT 26 U/L (14-59); AST 19 U/L (15-37); Albumin 3.8 g/dL (3.4-5.0); Alkaline Phosphatase 124 U/L (46-116); Anion Gap 6.4 mmol/L (3-11); BUN 16 mg/dL (7-18); CO2 31.6 mmol/L (21.0-32.0); CREATININE 0.8 mg/dL (0.55-1.02); Calcium 9.7 mg/dL (8.5-10.1); Calculated LDL 134 mg/dL (<100); Chloride 105 mmol/L (98-107); Cholesterol 230 mg/dL (<200); Glucose 96 mg/dL (74-106); HDL Cholesterol 74 mg/dL (40-60); Sodium 143 mmol/L (136-145); Total Protein 7.3 g/dL (6.4-8.2); Triglyceride 113 mg/dL (<150); Vitamin D 25 Total 42.6 ng/mL (30-100)
== END 2024-03-20 10:14 | disposition home or self-care (01) ==
LOC: NCHCN 10:13
PROVIDERS: PCP Nurse Practitioner Family; Visit Provider Nurse Practitioner Family
DX: Z00.00 Encounter for general adult medical examination without abnormal findings (principal); E55.9 Vitamin D deficiency, unspecified
CPT/HCPCS: 80053; 80061; 82306